=== PATIENT | female | born 1960 | race Caucasian/White ===

== ENCOUNTER 2017-09-04 15:35 | Inpatient (IN) ==
--- OUTSIDE RECORDS SUMMARY | 2017-09-04 15:41 | External Medical Summary | Referral Summary ---
:1960 Author [facility] Address [address] [place] [address] [place] [address] Care Team Providers Name Role Phone Chun Crawley Primary Care Physician Encounter VC Date(s): 03/25/16 - 03/25/16 [facility] [place] [address] Discharge Diagnosis: Cellulitis of right leg Discharge Disposition: 01-Home or Self Care Attending Physician: Chun Crawley DO Admitting Physician: Chun Crawley DO Vital Signs Most recent to oldest [Reference Range]: 1 Temperature Tympanic [36.6-38.1 degC] 36.3 degC *LOW* (03/25/16 9:52 AM) Peripheral Pulse Rate [60-100 bpm] 85 bpm (03/25/16 9:52 AM) Blood Pressure [90-140/60-90 mmHg] 117/78 mmHg (03/25/16 9:52 AM) Problem List Condition Effective Dates Status Health Status Informant Gastritis(Confirmed)1 Active Tobacco user(Confirmed) Active patient 1with regular ibuprofen, ETOH overuse Allergies, Adverse Reactions, Alerts Substance Reaction Severity Status aspirin N/V Active NAUSEA calcium carbonate N/V Active penicillin UNK Active UNKNOWN Medications ibuprofen 800 mg oral tablet 800 mg 1 tabs, Oral, q8hr, # 30 tabs, 0 Refill(s) Start Date: 10/05/15 Status: OrderedMisc Medication Progesterone/Testosterone replacement 20/0.6 BID, 0 Refill(s) Start Date: 03/21/16 Status: Orderedondansetron 4 mg oral tablet, disintegrating 4 mg 1 tabs, Oral, q6hr, as needed for nausea/vomiting, 0 Refill(s) Start Date: 03/21/16 Status: OrderedPercocet 5/325 oral tablet 1 tabs, Oral, q6hr, as needed for pain, # 30 tabs, 0 Refill(s) Start Date: 03/25/16 Stop Date: 04/24/16 Status: Ordered Results No data available for this section Immunizations Vaccine Date Refusal Reason tetanus/diphth/pertuss (Tdap) adult/adol 02/23/09 pneumococcal 23-polyvalent vaccine 02/23/09 Procedures Procedure Date Related Diagnosis Body Site Colonoscopy 02/24/12 Rt mastectomy; Rt sn bx, Rt ax node dissection, 03/31/11 LFT mastecto1 Appendectomy Uterine suspension 1See conversion document Social History Social History Type Response Smoking Status Former smoker; Type: Cigarettes Assessment and Plan Extracted from: Title: Office Visit Note Author: Chun Crawley DO Date: 03/25/16 Assessment/Plan 1.Cellulitis of right leg 1. Hospital records from recent hospitalization at [facility] was reviewed in detail. 2. Continue with wound care clinic management 3. Agree with discontinuation of the antibiotic 4. Prescription was refilled for Percocet for 30 tablets. I do not anticipate that she will need additional refill after this. 5. We will fill out her FMLA papers. 6. Follow-up in 2 weeks for reevaluation and determination if we can clear her to go back to work. Ordered: Office Visit Level 4 Est 29777
--- OUTSIDE RECORDS SUMMARY | 2017-09-04 15:41 | External Medical Summary | Referral Summary ---
:1960 Author Care Team Providers Name Role Phone Bradshaw Joel Costello Primary Care Physician Encounter VC Date(s): 10/27/14 - 10/27/14 [facility], [facility] [address] [place] [address] Discharge Diagnosis: COUGH Discharge Diagnosis: Upper respiratory infection Discharge Disposition: Home or Self Care Attending Physician: Ni Main APRN Admitting Physician: Ni Main APRN Vital Signs Most recent to oldest [Reference Range]: 1 Temperature Tympanic [36.6-38.1 degC] 36.5 degC *LOW* (10/27/14 1:30 PM) Peripheral Pulse Rate [60-100 bpm] 72 bpm (10/27/14 1:30 PM) Blood Pressure [90-140/60-90 mmHg] 116/62 mmHg (10/27/14 1:30 PM) Problem List Condition Effective Dates Status Health Status Informant Gastritis(Confirmed)1 Active Tobacco user(Confirmed) Active patient 1with regular ibuprofen, ETOH overuse Allergies, Adverse Reactions, Alerts Substance Reaction Severity Status aspirin N/V Active NAUSEA calcium carbonate N/V Active penicillin UNK Active UNKNOWN Medications Fosamax 70 mg oral tablet 1 tabs, Oral, qWeek, in the morning, at least 30 min before first food, beverage , or medication of day Special Instructions: in the morning, at least 30 min before first food, beverage, or medication of day Start Date: 07/13/14 Status: OrderedPromethazine VC with Codeine oral syrup See Instructions, 5-10mL Oral q4-6hr prn for cough, # 120 mL, 0 Refill(s) Special Instructions: 5-10mL Oral q4-6hr prn for cough Start Date: 10/27/14 Status: OrderedZithromax Z-Luciano 250 mg oral tablet 1 packets, Oral, Daily, as directed on package labeling, X 5 days, # 6 tabs, 0 Refill(s), Pharmacy: [facility] #[id number], 1 packets Oral Daily,x5 days, Instr:as directed on package labeling Special Instructions: as directed on package labeling Start Date: 10/27/14 Stop Date: 11/01/14 Status: Ordered Results Hematology Most recent to oldest [Reference Range]: 1 WBC [5.0-10.0 K/uL] 8.9 K/uL (10/27/14 2:12 PM) RBC [3.70-5.20 M/uL] 4.94 M/uL (10/27/14 2:12 PM) Hgb [12.0-16.0 gm/dL] 14.6 gm/dL (10/27/14 2:12 PM) Hct [37.0-47.0 %] 43.7 % (10/27/14 2:12 PM) MCV [80.0-96.0 fL] 88.5 fL (10/27/14 2:12 PM) MCH [26.0-34.0 pg] 29.6 pg (10/27/14 2:12 PM) MCHC [32.0-36.0 gm/dL] 33.4 gm/dL (10/27/14 2:12 PM) RDW [0.0-14.5 %] 14.2 % (10/27/14 2:12 PM) Platelet [150-400 K/uL] 348 K/uL (10/27/14 2:12 PM) MPV [8.8-14.8 fL] 10.7 fL (10/27/14 2:12 PM) Neutrophils [50-70 %] 64 % (10/27/14 2:12 PM) Lymphocytes [20-40 %] 25 % (10/27/14 2:12 PM) Monocytes [4-8 %] 9 % *HI* (10/27/14 2:12 PM) Eosinophils [0-6 %] 2 % (10/27/14 2:12 PM) Basophils [0-2 %] 0 % (10/27/14 2:12 PM) Neutro Absolute [2.50-7.00 K/uL] 5.66 K/uL (10/27/14 2:12 PM) Lymph Absolute [1.00-4.00 K/uL] 2.19 K/uL (10/27/14 2:12 PM) Pope Absolute [0.20-0.80 K/uL] 0.83 K/uL *HI* (10/27/14 2:12 PM) Eos Absolute [0.00-0.60 K/uL] 0.19 K/uL (10/27/14 2:12 PM) Baso Absolute [0.00-0.30 K/uL] 0.03 K/uL (10/27/14 2:12 PM) Immunizations Vaccine Date Refusal Reason tetanus/diphth/pertuss (Tdap) adult/adol 02/23/09 pneumococcal 23-polyvalent vaccine 02/23/09 Procedures Procedure Date Related Diagnosis Body Site Collection of venous blood by venipuncture 10/27/14 Colonoscopy 02/24/12 Rt mastectomy; Rt sn bx, Rt ax node dissection, 03/31/11 LFT mastecto1 Appendectomy Uterine suspension 1See conversion document Social History Social History Type Response Smoking Status Former smoker; Type: Cigarettes Assessment and Plan No data available for this section
--- OUTSIDE RECORDS SUMMARY | 2017-09-04 15:41 | External Medical Summary | Referral Summary ---
:1960 [facility] Address [address] [place] [address] [place] [address] Care Team Providers Name Role Phone Chun Crawley Primary Care Physician Encounter VC Date(s): 10/05/15 - 10/05/15 [facility] [address] [place] [address] [place] Discharge Diagnosis: Chronic right hip pain Discharge Disposition: 01-Home or Self Care Attending Physician: Chun Crawley DO Admitting Physician: Chun Crawley DO Vital Signs Most recent to oldest [Reference Range]: 1 Peripheral Pulse Rate [60-100 bpm] 115 bpm *HI* (10/05/15 3:30 PM) Blood Pressure [90-140/60-90 mmHg] 130/85 mmHg (10/05/15 3:30 PM) SpO2 98 % (10/05/15 3:30 PM) Problem List Condition Effective Dates Status [...] food, beverage , or medication of day Start Date: 07/13/14 Status: Orderedibuprofen 800 mg oral tablet 800 mg 1 tabs, Oral, q8hr, # 30 tabs, 0 Refill(s) Start Date: 10/05/15 Status: Orderedmeloxicam 15 mg oral tablet 15 mg 1 tabs, Oral, Daily, # 30 tabs, 0 Refill(s), Pharmacy: [facility] # [id number], 1 tabs Oral Daily Start Date: 10/05/15 Status: OrderedpredniSONE 10 mg oral tablet See Instructions, 5 tab daily for 3 days, then 4 daily for 3 days, then 3 daily for 3 days, then 2 daily for 3 days, then one tab daily for 3 days, # 45 tabs, 0 Refill(s), [facility] #[id number], 5 tab daily for 3 days, then 4 daily for 3... Start Date: 10/05/15 Stop Date: 10/20/15 Status: OrderedPromethazine VC with Codeine oral syrup See Instructions, 5-10mL Oral q4-6hr prn for cough, # 120 mL, 0 Refill(s) Start Date: 10/27/14 Status: OrderedUltram 50 mg oral tablet 50 mg 1 tabs, Oral, q12hr, as needed for pain, # 30 tabs, 0 Refill(s) Start Date: 10/05/15 Stop Date: 11/05/15 Status: Ordered Results No data available for [...] Cigarettes Assessment and Plan Extracted from: Title: Chronic right hip pain Author: Chun Crawley DO Date: 10/05/15 Assessment/Plan Chronic right hip pain 1. Her history is concerning for bony injury versus degenerative arthritis of the hip. Clinically this appears to be muscular in nature with tendinitis of the adductor is of the hip. 2. Imaging of the hip and pelvis were negative for any bony or joint disruption. 3. We will start her on meloxicam 15 mg daily for 2-4 weeks. 4. Prednisone over 15 days. 5. Tramadol 50 mg every 12 hours as needed for pain not controlled by the above. 6. Recommended holding off on manipulative therapy for now. 7. We may consider sending her to physical therapy versus eye specialist. Ordered: meloxicam, 15 mg 1 tabs, Oral, Daily, # 30 tabs, 0 Refill(s), [facility] #[id number], 1 tabs Oral Daily predniSONE, See Instructions, 5 tab daily for 3 days, then 4 daily for 3 days , then 3 daily for 3 days, then 2 daily for 3 days, then one tab daily for 3 days, # 45 tabs, 0 Refill(s), Pharmacy: [facility] #[id number], 5 tab daily for 3 days, then 4 daily for 3... traMADol, 50 mg 1 tabs, Oral, q12hr, as needed for pain, # 30 tabs, 0 Refill(s ) Office Visit Level 4 Est 06784
--- OUTSIDE RECORDS SUMMARY | 2017-09-04 15:41 | External Medical Summary | Referral Summary ---
:1960 Author Organization [facility] [place] [address] Care Team Providers Name Role Phone Chun Crawley Primary Care Physician Encounter VC Date(s): 04/07/16 - 04/07/16 [facility] [place] [address] [place] Discharge Diagnosis: Wellness examination Discharge Diagnosis: Cellulitis of right foot Discharge Diagnosis: Mixed hyperlipidemia Discharge Disposition: 01-Home or Self Care Attending Physician: Chun Crawley DO Admitting Physician: Chun Crawley DO Vital Signs Most recent to oldest [Reference Range]: 1 Temperature Tympanic [36.6-38.1 degC] 36 degC *LOW* (04/07/16 8:51 AM) Peripheral Pulse Rate [60-100 bpm] 82 bpm (04/07/16 8:51 AM) Blood Pressure [90-140/60-90 mmHg] 115/77 mmHg (04/07/16 8:51 AM) Problem List Condition Effective Dates Status Health Status Informant Gastritis(Confirmed)1 Active Tobacco user(Confirmed) Active patient 1with regular ibuprofen, ETOH overuse Allergies, Adverse Reactions, Alerts Substance Reaction Severity Status aspirin N/V Active NAUSEA calcium carbonate N/V Active penicillin UNK Active UNKNOWN Medications clindamycin 300 mg oral capsule 300 mg 1 caps, Oral, q6hr, X 10 days, # 40 caps, 0 Refill(s), Pharmacy: [facility] #[id number], 1 caps Oral q6hr,x10 days Start Date: 03/31/16 Stop Date: 04/10/16 Status: Orderedibuprofen 800 mg oral tablet 800 [...] Cigarettes Assessment and Plan Extracted from: Title: Wellness visit, Rt leg cellulitis Author: Chun Carwley DO Date: 04/07/16 Assessment/Plan 1.Mixed hyperlipidemia 1. Lipid markersareelevated. 2. Cardiovascular riskassociated with elevated markers discuss in detail with patient, she voiced understanding. 3.Healthy lifestyle changes discuss in detail with patient. She voiced understanding 4. Repeat fasting lipids in 6 months. If values do not improve then my recommendations with be to start her on Atorvastatin. 5. Decrease alcohol use recommended. 6. Flu shot offered, she declined. Cellulitis of right foot 1. Cellulitis is healing. 2. continue with wound care. 3. continue with Abx 4. Follow up if worsening. 5. She may return to work in one week Ordered: Periodic Comp Preventive Med 40 to 64 years Est 20647 Wellness examination 1. This is a WDWN 55 yo in relatively good health. 2. Recommendations as above. 3. Yearly TOOLROOM CHECKER exam recommended. 4. Yearly mammogram recommended. 5. Last colonoscopy was 2011 and reported to be normal Ordered: Periodic Comp Preventive Med 40 to 64 years Est 01323
[2017-09-04] MEDS ORDERED: NS 1,000 ML IV ONE (15:49)
[2017-09-04] MEDS ORDERED: ONDANSETRON 4 MG/2 ML INJECTION IVP PRN (16:26)
--- NOTE | 2017-09-04 16:29 | History & Physical Report ---
History of Present Illness Date: 09/04/17 Chief complaint: Fever, hypotension, tachycardia HPI: Patient is a 57yo female who is a direct admit from Ni Main APRN, for fever, hypotension and tachycardia. SHe started running a temp 3 days ago and is very weak and dizzy. C/o headache. No SOA. Has had a cough "for over a month." Not really bothersome to her now, but occasionally coughs up yellow sputum. Cough was worse 2 wks ago. Works at [employer] so has had exposure to illness. Pt states her L kidney started hurting approx a week ago. States she might have a funny odor to her urine but has no dysuria, hematuria or frequency. No h/o pyelo, but has had UTI's in past. She vomited yesterday after taking Tylenol. Some nausea. No further vomiting. Patient had BP of 90/60 and pulse in the 120-140's when seen in her PCP's office. Review of Systems All systems PM: 10-point ROS was reviewed, no additional remarkable complaints except (fatigue, weakness, headache, chronic cough, foul odor to urine, L kidney pain, fever) Past Medical History Breast cancer - 2010 - s/p chemo and radiation with no recurrence Alcohol abuse Medical History Updates: Hospitalized approx 2015 for cellulitis/sepsis Surgical History: b/l mastectomy secondary to cacner and breast reconstruction, tubal, appy, exp lap Family History: Dad - Renal failure Mom - CAD Family History Updates: updated - Social History Smoking status: Former smoker (quit 2000. 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 Crawley Oncologist - Dr. Samano Medications Home Medications Medication Instructions Recorded Confirmed Type progest/test mini 1 tab SL BID #0 03/12/16 History Allergies Allergy/AdvReac Type Severity Reaction Status Date / Time Penicillins Allergy Unknown Verified 11/10/16 17:37 aspirin AdvReac Intermediate NAUSEA Verified 11/10/16 17:37 Exam Vital Signs: Temperature 98.4 F 09/04/17 15:50 Pulse Rate 105 H 09/04/17 15:50 Respiratory Rate 22 09/04/17 15:50 Blood Pressure 138/87 09/04/17 15:50 Pulse Oximetry 95 09/04/17 15:50 Height/Weight/BMI: Height 1.6 m Weight 73.3 kg Body Mass Index 28.6 - Constitutional Present: no acute distress, well nourished, well developed - Routine HEENT Exam Head: Present: normocephalic, atraumatic Eye: Present: EOMI, PERRL ENT: Present: mucous membranes dry, oropharynx clear - Routine Neck Exam Present: supple. Absent: lymphadenopathy, thyromegaly - Routine Respiratory Exam Present: decreased breath sounds (LLL), CTA bilaterally. Absent: wheezes - Routine Cardiovascular Exam Present: RRR, no murmur, tachycardia (mild) - Routine Abdominal Exam Present: soft, normoactive bowel sounds, tenderness (suprapubic and b/l flank. L>R.). Absent: distended - Routine Extremities Exam Present: no edema, normal capillary refill - Routine Skin Exam Present: dry, warm - Routine Neurological Exam Present: alert, oriented X3, CN II-XII intact, normal speech - Routine Psychiatric Exam Present: normal affect, cooperative Results - Labs CBC & Chem 7: 09/04/17 16:19 09/04/17 16:19 Labs: Laboratory Tests 09/04/17 16:19 AST 40 H ALT 94 H Plasma Lactate 1.3 Assessment and Plan (1) Fever Current visit: Yes Status: Acute Assessment and Plan: Assessment Suspect sepsis - SIRS: tachycardia, leukocytosis. Possible urine or pulmonary source. Urine/CXR pending at time of documentation. R/o UTI/pyelo, influenza/PNA Leukocytosis Fever Dehydration Generalized weakness Hypotension Tachycardia Transaminitis Alcohol abuse Breast Cancer 2010 - s/p chemo/rad, mastectomy and reconstruction Plan Admit, IP, to hospitalist service, Dr. Robbins attending. Stay is expected to exceed 2 overnights given her presentation of possible sepsis and other presenting issues. CBC, CMP, lactate, procalcitonin, blood cultures, CXR, EKG, respiratory panel and UA ordered upon admission. Bolus 1L normal saline for rehydration and BP support. Seizure precautions and lorazapam IV PRN alcohol w/drawal sxs. Thiamin, MVI, folate given her alcohol abuse. Duonebs for cough/possible pulmonary infection. Acapella for loosening secretions. Antibiotics/further orders per Dr. Robbins when testing is completed. Pt wishes to be a full code. Names her daughter as DPOA-H if needed. Care to return to Dr. Crawley on dismissal. Case discussed with Dr. Robbins. Ros[place] Assessment as above with: UTI DVT Prophylaxis: SCD's Resuscitation Status: Full Code - Physician Narrative Physician: Sadiq Robbins MD Narrative: Date: 09/04/17 Time: 2030 Have independently interviewed and examined pt. Chart reviewed. Case discussed with Ni Main and my PA. Care plan developed with my supervision; agree with above. Feeling miserable for the past 3 days-temp elevation, not eating/drinking, more tired/weak. Minor cough, but decreased as compared to several weeks ago. Notes flank pain. Seen in clinic-HR increase and BP decreased. Placed in admission status due to suspected sepsis. Lungs: clear CV: tachy, regular AB: soft nt MSE: awake alert Plan: Inpatient admission. IVF bolus of 1L NS given. BP and lactate normal. Flu Neg. Urine sample favoring UTI. Control pain/nausea. Monitor lab. Hospital Course Summary Disclaimer: The visit summary below is not to be considered part of the above Progress Note. Hospital Course: 09/04/17 Admit, IP, to hospitalist service, Dr. Robbins attending. Stay is expected to exceed 2 overnights given her presentation of possible sepsis and other presenting issues. CBC, CMP, lactate, procalcitonin, blood cultures, CXR, EKG, respiratory panel and UA ordered upon admission. Bolus 1L normal saline for rehydration and BP support. Rocephin 1 gram IV daily for antimicrobial coverage. Seizure precautions and lorazapam IV PRN alcohol w/drawal sxs. Thiamin, MVI, folate given her alcohol abuse. Duonebs for cough/possible pulmonary infection. Acapella for loosening secretions. Antibiotics/further orders per Dr. Robbins when testing is completed. Pt wishes to be a full code. Names her daughter as DPOA-H if needed. Care to return to Dr. Crawley on dismissal. Case discussed with Dr. Robbins.
--- NOTE | 2017-09-04 16:59 | XRay Report ---
Indication: hypotension XR chest 1V: Comparison: None Technique: Single AP upright chest Findings: Patient shows heart size within normal limits. The mid and lower lungs are somewhat artifactually hazy by overlying soft tissue. No definitive focal prequel consolidations or pleural effusions are seen. No acute bony findings noted. Impression: Patient failed to show acute cardiopulmonary findings. .
[2017-09-04] MEDS: ACETAMINOPHEN 325 MG TABLET PO PRN (18:58)
[2017-09-04] MEDS: ALBUTEROL/IPRATROPIUM 2.5mg-0.5mg/3ml NEB AEROSOL SCH (20:02)
[2017-09-04] MEDS ORDERED: CEFTRIAXONE 1 G in NS 100 ML IV SCH (20:30)
[2017-09-04] MEDS: NS with KCL 20 mEq 1,000 ML IV SCH (20:52)
[2017-09-05] MEDS: ACETAMINOPHEN 325 MG TABLET PO PRN (02:45)
[2017-09-05] MEDS ORDERED: SALINE FLUSH 10ml SYRINGE IV PRN (06:00)
[2017-09-05] MEDS: ALBUTEROL/IPRATROPIUM 2.5mg-0.5mg/3ml NEB AEROSOL SCH ×3 (08:23→19:56)
[2017-09-05] MEDS: FOLIC ACID 1 MG TABLET PO SCH (08:43)
[2017-09-05] MEDS: MULTI-VITAMIN + MINERAL TABLET PO SCH (08:43)
--- NOTE | 2017-09-05 09:30 | Progress Note ---
- Date 09/05/17 Subjective: F/U: Sepsis, UTI/pyelonephritis Feels slightly better today-less weak, feverish, and nauseated. Oral drive still decreased-did eat a pancake for breakfast, but not sure if that was a good idea (feels upset to stomach). No stool, no flatus; not feeling ab bloating. Breathing well except for cough; not SOA or having discomfort with breathing. Urinating more. Flank pain with decrease. Slept poorly last night. Objective Vital signs: Temperature 98.1 F 09/05/17 07:26 Pulse Rate 85 09/05/17 08:00 Respiratory Rate 18 09/05/17 08:23 Blood Pressure 148/79 H 09/05/17 07:26 Pulse Oximetry 97 09/05/17 08:23 Height/Weight/BMI: Height 1.6 m Weight 75.3 kg Body Mass Index 28.6 - Constitutional Present: well nourished, well developed, average body habitus, cooperative. Absent: agitated, somnolent, obtunded - Routine HEENT Exam Head: Present: normocephalic, atraumatic Eye: Present: EOMI, PERRL ENT: Present: mucous membranes moist - Routine Respiratory Exam Present: CTA bilaterally. Absent: respiratory distress - Routine Cardiovascular Exam Present: RRR, no murmur - Routine Abdominal Exam Present: soft, normoactive bowel sounds, non distended, non tender. Absent: guarding - Routine Extremities Exam Present: edema (+1 BLE ), pulses intact. Absent: cyanosis, clubbing - Routine Musculoskeletal Exam Musculoskeletal: Present: no clubbing or cyanosis - Routine Skin Exam Present: dry, warm - Routine Neurological Exam Present: alert, CN II-XII intact, moving all extremities, vision grossly intact , hearing grossly intact, normal speech. Absent: motor deficit, altered mental status, fasciculations, tremors - Routine Psychiatric Exam Present: normal affect, normal thought process, cooperative Results - Labs CBC & Chem 7: 09/05/17 04:06 09/05/17 04:06 Microbiology Results: Microbiology 09/04/17 17:54 Urine, Voided (Cc/notcc) Urine Culture - Preliminary Culture Initiated - Results Pending 09/04/17 17:09 Midline Blood Culture - Preliminary Culture Initiated - Results Pending 09/04/17 16:19 Peripheral/Iv Start Blood Culture - Preliminary Culture Initiated - Results Pending Assessment and Plan (1) Sepsis Current visit: Yes Status: Acute (2) Pyelonephritis Current visit: Yes Status: Acute (3) UTI (urinary tract infection) Current visit: Yes Status: Acute (4) Fever Current visit: Yes Status: Acute Assessment and Plan: Assessment Sepsis - SIRS: tachycardia, leukocytosis. Source: UTI/pyelo UTI/pyelonephritis Leukocytosis Fever Dehydration Generalized weakness Hypotension - resolved Tachycardia Transaminitis Hypokalemia (NOT POA) Alcohol abuse Breast Cancer 2010 - s/p chemo/rad, mastectomy and reconstruction Plan Will continue with Rocephin for urinary coverage - check on C/S. Continue IVF of NS with 20mEq KCl to help maintain hydration as oral drive still decreased. Potassium decreased to 3.5 - will give oral potassium 20mEq x2 today. Serax 30mg at night to help sleep and decrease risk for seizures. Encourage ambulation. Recheck CMP in am secondary to resolving Transaminitis, check Mg due to hypokalemia, check CBC secondary to resolving sepsis. Time spent with patient care 25 minutes. Admit, IP, to hospitalist service, Dr. Robbins attending. Stay is expected to exceed 2 overnights given her presentation of possible sepsis and other presenting issues. CBC, CMP, lactate, procalcitonin, blood cultures, CXR, EKG, respiratory panel and UA ordered upon admission. Bolus 1L normal saline for rehydration and BP support. Seizure precautions and lorazapam IV PRN alcohol w/drawal sxs. Thiamin, MVI, folate given her alcohol abuse. Duonebs for cough/possible pulmonary infection. Acapella for loosening secretions. Antibiotics/further orders per Dr. Robbins when testing is completed. Pt wishes to be a full code. Names her daughter as DPOA-H if needed. Care to return to Dr. Crawley on dismissal. DVT Prophylaxis: SCD's Resuscitation Status: Full Code - Time spent with patient Time with patient PN: 25 minutes - Physician Narrative Physician: Sadiq Robbins MD Narrative: Date: 09/05/17 Time: 0925 Hospital Course Summary Disclaimer: The visit summary below is not to be considered part of the above Progress Note. Hospital Course: 09/04/17 Admit, IP, to hospitalist service, Dr. Robbins attending. Stay is expected to exceed 2 overnights given her presentation of possible sepsis and other presenting issues. CBC, CMP, lactate, procalcitonin, blood cultures, CXR, EKG, respiratory panel and UA ordered upon admission. Bolus 1L normal saline for rehydration and BP support. Rocephin 1 gram IV daily for antimicrobial coverage. Seizure precautions and lorazepam IV PRN alcohol w/drawl sxs. Thiamin, MVI, folate given her alcohol abuse. DuoNeb for cough/possible pulmonary infection. Acapella for loosening secretions. Pt wishes to be a full code. Names her daughter as DPOA-H if needed. Care to return to Dr. Crawley on dismissal. 09/05/17 Blood pressures improved. WBC with decrease to 9.2. Will continue with Rocephin for urinary coverage - check on C/S. Continue IVF of NS with 20mEq KCl to help maintain hydration as oral drive still decreased. Potassium decreased to 3.5 - will give oral potassium 20mEq x2 today. Serax 30mg at night to help sleep and decrease risk for seizures. Encourage ambulation.
[2017-09-05] MEDS: NS with KCL 20 mEq 1,000 ML IV SCH ×2 (10:14→23:28)
[2017-09-05 16:08] VITALS: BMI 29.4
[2017-09-05] MEDS ORDERED: CEFTRIAXONE 1 G in NS 50 ML IV SCH (20:00)
[2017-09-05] MEDS ORDERED: OXAZEPAM 30 MG CAPSULE PO SCH (21:00)
[2017-09-06] MEDS: ALBUTEROL/IPRATROPIUM 2.5mg-0.5mg/3ml NEB AEROSOL SCH (07:15)
[2017-09-06 07:19] VITALS: RESP 20
[2017-09-06 07:55] VITALS: BP 134/76; PULSE 106; TEMP 96.9; O2SAT 93
[2017-09-06] MEDS: MULTI-VITAMIN + MINERAL TABLET PO SCH (09:29)
[2017-09-06] MEDS: FOLIC ACID 1 MG TABLET PO SCH (09:29)
--- NOTE | 2017-09-06 09:55 | Progress Note ---
- Date 09/06/17 Subjective: F/U: Sepsis, UTI/pyelonephritis with E coli Improving-feel much better than even yesterday (not 100%). Nausea decreased. Taking liquids in well. Appetite improving; more hungry and starting to eat better. Flank pain decrease. Breathing well. No f/c. Strength returning-able to move more and better (reports typically take 99937 steps a day). Does feel ready to go home. Objective Vital signs: Temperature 96.9 F 09/06/17 07:49 Pulse Rate 106 H 09/06/17 07:49 Respiratory Rate 20 09/06/17 07:49 Blood Pressure 134/76 09/06/17 07:49 Pulse Oximetry 93 09/06/17 07:49 Height/Weight/BMI: Height 1.6 m Weight 76.1 kg Body Mass Index 29.4 - Constitutional Present: well nourished, well developed, average body habitus, cooperative - Routine HEENT Exam Head: Present: normocephalic, atraumatic Eye: Present: EOMI, PERRL ENT: Present: mucous membranes moist - Routine Respiratory Exam Present: CTA bilaterally. Absent: respiratory distress - Routine Cardiovascular Exam Present: RRR, no murmur - Routine Abdominal Exam Present: soft, normoactive bowel sounds, non distended, non tender. Absent: guarding - Routine Extremities Exam Present: no edema, pulses intact. Absent: cyanosis, clubbing - Routine Musculoskeletal Exam Musculoskeletal: Present: no clubbing or cyanosis, normal strength - Routine Skin Exam Present: intact, dry, warm, normal turgor. Absent: pallor, mottling - Routine Neurological Exam Present: alert, oriented X3, CN II-XII intact, moving all extremities, vision grossly intact, hearing grossly intact, normal speech. Absent: motor deficit, altered mental status - Routine Psychiatric Exam Present: normal affect, normal thought process, cooperative, good insight, good judgment Results - Labs CBC & Chem 7: 09/06/17 04:21 09/06/17 04:21 Microbiology Results: Microbiology 09/04/17 17:54 Urine, Voided (Cc/notcc) Urine Culture - Final Escherichia coli 09/04/17 17:09 Midline Blood Culture - Preliminary No Growth After 1 Day 09/04/17 16:19 Peripheral/Iv Start Blood Culture - Preliminary No Growth After 1 Day Assessment and Plan (1) Sepsis Current visit: Yes Status: Acute (2) Pyelonephritis Current visit: Yes Status: Acute (3) UTI (urinary tract infection) Current visit: Yes Status: Acute (4) Fever Current visit: Yes Status: Acute Assessment and Plan: Assessment Sepsis - SIRS: tachycardia, leukocytosis. Source: UTI/pyelo -- resolved UTI/pyelonephritis with Ecoli Leukocytosis - resolved Fever - resolved Dehydration - resolved Generalized weakness Hypotension - resolved Tachycardia Transaminitis Hypokalemia (NOT POA) - resolved Alcohol abuse Breast Cancer 2010 - s/p chemo/rad, mastectomy and reconstruction Plan Clinically improved. Leukocytosis resolved. Febrile process resolve. Oral drive improved. Strength improving. Will discharge to home. Cephalexin 500mg orally TID for 7 days to complete course. Encourage increasing activities as able - may return to work on 09/11/17. Advised avoidance of alcohol. F/U with Dr Crawley in 1 week. See orders for details. Time spent with patient care and discharge greater than 30 minutes. DVT Prophylaxis: SCD's - Physician Narrative Narrative: Date: 09/06/17 Time: 0952 Hospital Course Summary Disclaimer: The visit summary below is not to be considered part of the above Progress Note. Hospital Course: 09/04/17 Admit, IP, to hospitalist service, Dr. Robbins attending. Stay is expected to exceed 2 overnights given her presentation of possible sepsis and other presenting issues. CBC, CMP, lactate, procalcitonin, blood cultures, CXR, EKG, respiratory panel and UA ordered upon admission. Bolus 1L normal saline for rehydration and BP support. Rocephin 1 gram IV daily for antimicrobial coverage. Seizure precautions and lorazepam IV PRN alcohol w/drawl sxs. Thiamin, MVI, folate given her alcohol abuse. DuoNeb for cough/possible pulmonary infection. Acapella for loosening secretions. Pt wishes to be a full code. Names her daughter as DPOA-H if needed. Care to return to Dr. Crawley on dismissal. 09/05/17 Blood pressures improved. WBC with decrease to 9.2. Will continue with Rocephin for urinary coverage - check on C/S. Continue IVF of NS with 20mEq KCl to help maintain hydration as oral drive still decreased. Potassium decreased to 3.5 - will give oral potassium 20mEq x2 today. Serax 30mg at night to help sleep and decrease risk for seizures. Encourage ambulation. 09/06/17 Clinically improved. Leukocytosis resolved. Febrile process resolve. Oral drive improved. Strength improving. Urine culture showing pansensitive E coi. Will discharge to home. Cephalexin 500mg orally TID for 7 days to complete course. Encourage increasing activities as able - may return to work on 09/11/17. Advised avoidance of alcohol. F/U with Dr Crawley in 1 week. See orders for details.
[2017-09-06] MEDS ORDERED: CEFTRIAXONE 1 G in NS 50 ML IV ONE (09:57)
--- NOTE | 2017-09-06 10:04 | Work/School Release ---
Work/School Release - Date Date: 09/06/17 - Work Release Remain off work/school for:: Thao Corrigan was hospitalized at [facility] from Sep 04, 2017 until Sep 06, 2017. She may return to work on September 11, 2017. She is not contagious.
--- NOTE | 2017-09-06 10:15 | Discharge Summary ---
Discharge Information Date of admission: 09/04/17 15:36 Anticipated date of discharge: 09/06/17 Attending Physician: Sadiq Robbins MD Primary care physician: Chun Crawley DO - Discharge Diagnosis (1) Sepsis Status: Acute (2) Pyelonephritis Status: Acute (3) UTI (urinary tract infection) Status: Acute (4) Fever Status: Acute Discharge diagnosis Sepsis - SIRS: tachycardia, leukocytosis. Source: UTI/pyelo -- resolved Associated conditions and complications UTI/pyelonephritis with Ecoli Leukocytosis - resolved Fever - resolved Dehydration - resolved Generalized weakness Hypotension - resolved Tachycardia Transaminitis Hypokalemia (NOT POA) - resolved Alcohol abuse Breast Cancer 2010 - s/p chemo/rad, mastectomy and reconstruction - Laboratory Labs: Admit Lab 09/04/17 16:19 WBC 12.4 H Hgb 13.8 Hct 41.9 MCV 91.9 Plt Count 298 Neut % (Auto) 70.7 H Lymph % (Auto) 13.8 L [place] % (Auto) 14.8 H Eos % (Auto) 0.3 Baso % (Auto) 0.1 Admit Lab 09/04/17 09/04/17 16:19 16:19 Sodium 142 Potassium 3.7 Chloride 100 Carbon Dioxide 29 Anion Gap 13 BUN 8.0 Creatinine 0.6 L GFR Calculation 104 BUN/Creatinine Ratio 13 Glucose 121 H Calculated Osmolality 272 Calcium 9.4 Magnesium 2.3 Total Bilirubin 0.50 AST 40 H ALT 94 H Alkaline Phosphatase 98 Total Protein 8.2 Albumin 4.4 Globulin 3.8 H Albumin/Globulin Ratio 1.2 Plasma Lactate 1.3 Procalcitonin 28.38 H* UA 09/04/17 17:54 Ur Specific [place] <=1.005 L Urine Protein Trace A Urine Glucose (UA) Negative Urine Ketones 2+ A Urine Occult Blood 1+ A Urine Nitrate Positive A Urine Bilirubin Negative Urine Urobilinogen 0.2 Ur Leukocyte Esterase 3+ A Urine RBC 3-5 H Urine WBC 30-50 H Urine Bacteria 4+ H Liver Enzymes 09/04/17 09/05/17 09/06/17 16:19 04:06 04:21 Total Bilirubin 0.50 0.30 < 0.10 L AST 40 H 36 23 ALT 94 H 72 H 57 H 09/06/17 04:21 09/06/17 04:21 - Microbiology Microbiology 09/04/17 17:54 Urine, Voided (Cc/notcc) Urine Culture - Final Escherichia coli 09/04/17 17:09 Midline Blood Culture - Preliminary No Growth After 1 Day 09/04/17 16:19 Peripheral/Iv Start Blood Culture - Preliminary No Growth After 1 Day - Radiology Radiology: Date of Exam: 09/04/17 Type of Exam: XR chest 1V Findings: Patient shows heart size within normal limits. The mid and lower lungs are somewhat artifactually hazy by overlying soft tissue. No definitive focal prequel consolidations or pleural effusions are seen. No acute bony findings noted. Impression: Patient failed to show acute cardiopulmonary findings. History of Present Illness HPI: Patient is a 57yo female who is a direct admit from [employer], for fever, hypotension and tachycardia. She started running a temp 3 days ago and is very weak and dizzy. C/o headache. No SOA. Has had a cough "for over a month." Not really bothersome to her now, but occasionally coughs up yellow sputum. Cough was worse 2 wks ago. Works at [employer] so has had exposure to illness. Pt states her L kidney started hurting approx a week ago. States she might have a funny odor to her urine but has no dysuria, hematuria or frequency. No h/o pyelo, but has had UTI's in past. She vomited yesterday after taking Tylenol. Some nausea. No further vomiting. Patient had BP of 90/60 and pulse in the 120-140's when seen in her PCP's office. For complete details of the H&P refer to that document. Objective Vital signs: Temperature 96.9 F 09/06/17 07:49 Pulse Rate 106 H 09/06/17 07:49 Respiratory Rate 20 09/06/17 07:49 Blood Pressure 134/76 09/06/17 07:49 Pulse Oximetry 93 09/06/17 07:49 Height/Weight/BMI: Height 1.6 m Weight 76.1 kg Body Mass Index 29.4 Hospital Course This is a general summary of the patient's hospital course. For more details refer to the complete medical record. Hospital course: 09/04/17 Admit, IP, to hospitalist service, Dr. Robbins attending. Stay is expected to exceed 2 overnights given her presentation of possible sepsis and other presenting issues. CBC, CMP, lactate, procalcitonin, blood cultures, CXR, EKG, respiratory panel and UA ordered upon admission. Bolus 1L normal saline for rehydration and BP support. Rocephin 1 gram IV daily for antimicrobial coverage. Seizure precautions and lorazepam IV PRN alcohol w/drawl sxs. Thiamin, MVI, folate given her alcohol abuse. DuoNeb for cough/possible pulmonary infection. Acapella for loosening secretions. Pt wishes to be a full code. Names her daughter as DPOA-H if needed. Care to return to Dr. Crawley on dismissal. 09/05/17 Blood pressures improved. WBC with decrease to 9.2. Will continue with Rocephin for urinary coverage - check on C/S. Continue IVF of NS with 20mEq KCl to help maintain hydration as oral drive still decreased. Potassium decreased to 3.5 - will give oral potassium 20mEq x2 today. Serax 30mg at night to help sleep and decrease risk for seizures. Encourage ambulation. 09/06/17 Clinically improved. Leukocytosis resolved. Febrile process resolve. Oral drive improved. Strength improving. Urine culture showing pansensitive E coi. Will discharge to home. Cephalexin 500mg orally TID for 7 days to complete course. Encourage increasing activities as able - may return to work on 09/11/17. Advised avoidance of alcohol. F/U with Dr Crawley in 1 week. See orders for details. Time spent with patient: discharge greater than 30 minutes Resuscitation Status: Full Code Discharge Plan - Discharge Disposition Discharge Date: 09/06/17 Disposition: Discharged Home, Self-Care *Condition: Stable Reason For Visit (Visit label in EMR): Hypotension, Tachycardia - R/O sepsis - Discharge Medications *Discharge Medications: New cephALEXin [Cephalexin] 500 mg PO TID #21 cap Zinc Oxide [Desitin] 1 applic TP TID PRN #1 tube PRN Reason: Anal itch Continue Ibuprofen 400 mg PO Q6H PRN 10 Days #80 tab PRN Reason: PAIN progest/test mini 1 tab SL BID #0 - Discharge Packet/Instructions *Diet: Increase as able. Plenty of fluids. Avoid alcohol. *Activity: Increase as able. May return to work on September 11. *Pain Management/Treatment: Ibuprofin as needed. *Wound Care: N/A Additional Instructions: May start cephalexin on September 07. Yougurt may help proctect your bowels for antibiotic induced diarrhea. May use Desitin topically to decrease anal itch from loose stool. *Expected Signs/Symptoms: Improvement of your strengh and appetite. *Notify Physician if: Temp >100.4. Uncontrollable diarrhea. *During Business Hours Contact: Dr Crawley *After Business Hours Contact: [place] [facility] [place] Crawley or his covering provider contacted. *Pending Lab/Results: No Pending Lab - Referrals/Follow Up *Referrals/Follow Up: Chun Crawley DO [Family Provider] - 1 Week (Hospital follow up for Ecoli UTI/ Pylonephritis with sepsis syndrome. ) - Patient Handouts Patient Handouts: Atrial Tachycardia (GEN) - Dismissal Complete Discharge Instructions are:: Complete Physician Narrative - Narrative Physician: Sadiq Robbins MD Attestation Narrative: Date: 09/06/17 Time: 1012 I have independently interviewed and examined patient prior to discharge. See my progress note from today for details. Medically stable for discharge to home.
[2017-09-06] MEDS ORDERED: ALBUTEROL/IPRATROPIUM 2.5mg-0.5mg/3ml NEB AEROSOL SCH (13:00)
== END 2017-09-06 14:55 | disposition home or self-care (01) | DRG 872 ==
LOC: MED 15:36
PROVIDERS: ADMIT Hospitalist; ATTEND Hospitalist